=== PATIENT | female | born 1960 | race Caucasian/White ===

== ENCOUNTER 2022-01-27 07:31 | Emergency (ER) | payer OTHER ==
[~2022-01-27] VITALS: Ht 154.9 cm; Wt 61.4 kg
[2022-01-27 07:36] VITALS: BP 161/97
[2022-01-27] MEDS ORDERED: ASPI-1450 PO (09:12)
[2022-01-27] MEDS ORDERED: HYDR25TA2 PO (09:12)
[2022-01-27] MEDS ORDERED: CHOL25TA4 PO (09:12)
[2022-01-27] MEDS ORDERED: LOSA-382 PO (09:12)
[2022-01-27] MEDS ORDERED: AMLO-258 PO (09:12)
[2022-01-27] MEDS ORDERED: ATOR10TA84 PO (09:12)
[2022-01-27] MEDS ORDERED: IBUPROFEN 400 MG TABLET PO ONE (11:45)
[2022-01-27] MEDS ORDERED: PERTUSS(ACELL),DIPH,TET VAC/PF 0.5 ML SYRINGE IM. ONE (11:45)
[2022-01-27] MEDS ORDERED: ACETAMINOPHEN 325 MG TABLET PO ONE (11:45)
== END 2022-01-27 12:36 | disposition home or self-care (01) ==
LOC: EMS 07:31
DX: S80.12XA Contusion of left lower leg, initial encounter (principal); S80.812A Abrasion, left lower leg, initial encounter; I10 Essential (primary) hypertension; Z79.899 Other long term (current) drug therapy; W20.8XXA Other cause of strike by thrown, projected or falling object, initial encounter; Y93.89 Activity, other specified; Y92.89 Other specified places as the place of occurrence of the external cause; Y99.8 Other external cause status
CPT/HCPCS: 90471; 90715; 99284

== ENCOUNTER 2022-01-30 14:56 | Emergency (ER) | payer OTHER ==
[~2022-01-30] VITALS: Ht 157.5 cm; Wt 61.4 kg
[~2022-01-30 14:56] MED LIST: AMLO-258 PO; ASPI-1450 PO; ATOR10TA84 PO; CHOL25TA4 PO; HYDR25TA2 PO; LOSA-382 PO
[2022-01-30 18:08] VITALS: BP 142/81
== END 2022-01-30 20:10 | disposition home or self-care (01) ==
LOC: EMS 14:56
DX: I80.232 Phlebitis and thrombophlebitis of left tibial vein (principal); I10 Essential (primary) hypertension; Z79.899 Other long term (current) drug therapy
CPT/HCPCS: 93971; 99284; Z7502